=== PATIENT | female | born 1985 | race Two or more races ===

== ENCOUNTER 2022-06-25 02:08 | Outpatient (CLI) | payer OTHER ==
[2022-06-25] MEDS ORDERED: PRENATAL TABLE1 EAC1 PO (02:12)
== END 2022-06-25 02:14 | disposition left against medical advice (07) ==
LOC: OBS/DEL 02:08
PROVIDERS: ATTEND Obstetrics & Gynecology
DX: O26.892 Other specified pregnancy related conditions, second trimester (principal); Z3A.24 24 weeks gestation of pregnancy

== ENCOUNTER 2022-09-16 04:39 | Inpatient (IN) | payer OTHER ==
[~2022-09-16] VITALS: Ht 167.6 cm; Wt 93.4 kg
[~2022-09-16 04:39] MED LIST: PRENATAL TABLE1 EAC1 PO
== END 2022-09-17 10:37 | disposition home or self-care (01) | DRG 833 ==
LOC: OBS/DEL 04:39 → LDR 11:05
PROVIDERS: ADMIT Obstetrics & Gynecology; ATTEND Obstetrics & Gynecology
PROC: 4A1HXCZ Monitoring of Products of Conception, Cardiac Rate, External Approach (ICD-10-PCS; principal; 2022-09-16)
DX: O60.03 Preterm labor without delivery, third trimester (principal); Z3A.36 36 weeks gestation of pregnancy; Z20.822 Contact with and (suspected) exposure to COVID-19